=== PATIENT | female | born 2000 | race Caucasian/White ===

== ENCOUNTER 2023-06-09 08:32 | Emergency (ER) | payer OTHER ==
[~2023-06-09] VITALS: Ht 162.6 cm; Wt 59.1 kg
[~2023-06-09 08:32] MED LIST: NOCURR
[2023-06-09 08:41] VITALS: TEMP 98
[2023-06-09] MEDS ORDERED: LIDO700A15 TP (12:15)
[2023-06-09 12:20] VITALS: BP 122/71; PULSE 88; RESP 18
== END 2023-06-09 12:22 | disposition home or self-care (01) ==
LOC: EMS 08:32
DX: S16.1XXA Strain of muscle, fascia and tendon at neck level, initial encounter (principal); M54.9 Dorsalgia, unspecified; Z98.890 Other specified postprocedural states; Z88.0 Allergy status to penicillin; V89.2XXA Person injured in unspecified motor-vehicle accident, traffic, initial encounter; Y93.89 Activity, other specified; Y92.89 Other specified places as the place of occurrence of the external cause; Y99.8 Other external cause status
CPT/HCPCS: 72040; 72072; 72100; 99284; Z7502

== ENCOUNTER 2023-10-04 05:58 | Emergency (ER) | payer OTHER ==
[~2023-10-04] VITALS: Ht 162.6 cm; Wt 63.6 kg
[~2023-10-04 05:58] MED LIST changes: +LIDO700A15 TP
[2023-10-04 06:11] VITALS: TEMP 98.4
[2023-10-04 08:01] VITALS: BP 126/74; PULSE 94; RESP 16
== END 2023-10-04 08:12 | disposition home or self-care (01) ==
LOC: EMS 06:03
DX: O26.891 Other specified pregnancy related conditions, first trimester (principal); Z98.890 Other specified postprocedural states; Z88.0 Allergy status to penicillin; Z3A.01 Less than 8 weeks gestation of pregnancy
CPT/HCPCS: 84702; 99283

== ENCOUNTER 2023-11-05 22:32 | Emergency (ER) | payer OTHER ==
[~2023-11-05] VITALS: Ht 165.1 cm; Wt 69.1 kg
[2023-11-05 22:40] VITALS: BP 116/70; PULSE 100; RESP 16; TEMP 97.8
[2023-11-05 23:12] LABS: BASOPHILS % (AUTO) 0.4 % (0.0-2.0); EOSINOPHILS % (AUTO) 1.3 % (1.0-6.0); HEMATOCRIT 41.2 % (36-46); HEMOGLOBIN 13.6 g/dL (12.0-16.0); LYMPHOCYTES # (AUTO) 2.5 K/uL (1.0-4.8); LYMPHOCYTES % (AUTO) 21.8 % (22.0-44.0); MEAN CORPUSCULAR HEMOGLOBIN 29.2 pg (26.0-34.0); MEAN CORPUSCULAR HGB CONC 33.1 G/dL (31.0-37.0); MEAN CORPUSCULAR VOLUME 88 fL (80-100); MONOCYTES # (AUTO) 0.6 K/uL (0.1-1.0); MONOCYTES % (AUTO) 5.4 % (2.0-9.0); NEUTROPHILS # (AUTO) 8.3 K/uL (1.8-7.7); NEUTROPHILS % (AUTO) 71.1 % (40.0-70.0); PLATELET COUNT (AUTO) 331 K/uL (150-450); RED BLOOD CELL COUNT(AUTO) 4.66 MIL/uL (4.00-5.20); RED CELL DISTRIBUTION WIDTH 14.8 % (11.5-14.5); WHITE BLOOD COUNT (AUTO) 11.7 K/uL (4.5-11.0)
== END 2023-11-06 00:48 | disposition left against medical advice (07) ==
LOC: EMS 22:54
DX: N93.9 Abnormal uterine and vaginal bleeding, unspecified (principal); Z53.21 Procedure and treatment not carried out due to patient leaving prior to being seen by health care provider
CPT/HCPCS: 84702; 85025; 86901

== ENCOUNTER 2024-12-10 18:54 | Emergency (ER) | payer MEDICARE, OTHER ==
[~2024-12-10] VITALS: Ht 160 cm; Wt 63.6 kg
[2024-12-10 19:05] VITALS: BP 136/86; PULSE 86; RESP 16; TEMP 98.1; O2SAT 99
== END 2024-12-10 21:29 | disposition home or self-care (01) ==
LOC: EMS 18:54
DX: T65.893A Toxic effect of other specified substances, assault, initial encounter (principal); S60.410A Abrasion of right index finger, initial encounter; Z98.890 Other specified postprocedural states; Z88.0 Allergy status to penicillin; Y92.89 Other specified places as the place of occurrence of the external cause; Y93.89 Activity, other specified; Y99.8 Other external cause status
CPT/HCPCS: 99283; Z7502